=== PATIENT | female | born 1945 | race African-American/Black ===

== ENCOUNTER 2021-02-11 14:22 | Emergency (ER) | payer OTHER ==
[~2021-02-11] VITALS: Ht 167.6 cm; Wt 61.2 kg
[2021-02-11] MEDS ORDERED: JANUVIA50 MG PO (14:48)
[2021-02-11] MEDS ORDERED: METFORMIN HCL500 M3 PO (14:48)
[2021-02-11] MEDS ORDERED: NORVASC10 MG PO (14:49)
[2021-02-11 16:02] LABS: ABSOLUTE NEUTROPHILS 5.6 thou/uL (1.4-8.2); BASOPHILS 0.6 % (0.0-2.0); EOSINOPHILS 1.6 % (0.0-3.0); HEMATOCRIT 39.6 % (37.0-47.0); HEMOGLOBIN 13.3 gm/dL (12.0-15.0); LYMPHOCYTES 22.9 % (24.0-44.0); MCH 29.6 pg (26.0-34.0); MCHC 33.6 g/dL (28.0-37.0); MCV 88.2 fL (80.0-100.0); MONOCYTES 9.4 % (1.0-8.0); POLYS 65.5 % (36.0-66.0); WBC 8.6 thou/uL (4.0-11.0)
[2021-02-11 16:14] LABS: CALCIUM 11.6 mg/dL (8.5-10.1); CREATININE 1.9 mg/dL (0.6-1.0); POTASSIUM 4.3 mmol/L (3.5-5.1)
[2021-02-11 16:20] LABS: ALBUMIN 3.5 g/dL (3.4-5.0); TOTAL BILIRUBIN 0.3 mg/dL (0.2-1.0); TOTAL PROTEIN 8.1 g/dL (6.4-8.2)
--- NOTE | 2021-02-11 16:25 | EKG ---
[place] [address] [employer] [facility] [address] ELECTROCARDIOGRAM REPORT Name: RENETTA SEQUEIRA [id number] Admission: 02/11/21 Attend Phys: Discharge: Date of : 41 Report #: [id number] [facility] ED Test Date: 2021-02-11 Test Time: 16:01:56 Pat Name: RENETTA SEQUEIRA Department: Room: Gender: F Garage Worker: NIKKIE : 1945 Requested By: Ramo Guillen Order Number: [id number] MD: Arturo Cartwright Measurements Intervals Delta Rate: 97 P: 59 [place]: 158 QRS: -50 QRSD: 160 T: 72 QT: 416 QTc: 529 Interpretive Statements Sinus rhythm Paired ventricular premature complexes Probable left atrial enlargement Left bundle branch block No previous ECG available for comparison Electronically Signed On 02-11-2021 16:25:05 CDT by Arturo Cartwright [email or web address] <ELECTRONICALLY SIGNED> By: Arturo Cartwright MD, [facility] 02/11/21 1625 1601 1601 Arturo Cartwright MD, FACC /EPI
[2021-02-11 16:37] LABS: LARGE PLATELETS RARE; PLATELET COUNT 85 thou/uL (150-400)
[2021-02-11 17:03] LABS: URINE BILIRUBIN NEGATIVE (Negative); URINE BLOOD NEGATIVE (Negative); URINE COLOR YELLOW; URINE GLUCOSE-RANDOM* NEGATIVE (Negative); URINE KETONES NEGATIVE (Negative); URINE PROTEIN (DIPSTICK) 1+ (Negative); URINE SPECIFIC GRAVITY 1.015 (1.005-1.035)
[2021-02-11 17:07] LABS: URINE CLARITY HAZY; URINE LEUKOCYTES-REFLEX 2+ (Negative); URINE NITRITE-REFLEX POSITIVE (Negative)
[2021-02-11 17:11] LABS: BACTERIA-REFLEX >30 Many /HPF (None Seen); SQUAMOUS 4-10 Moderate /LPF (0-3); URINE RBC None Seen /HPF (NONE SEEN)
[2021-02-11 17:12] LABS: CASTS None Seen /LPF (None Seen); CRYSTALS None Seen /LPF (None Seen)
[2021-02-11] MEDS ORDERED: CEPHALEXIN500 MG PO (17:26)
[2021-02-11 18:10] VITALS: BP 151/82
== END 2021-02-11 18:10 | disposition home or self-care (01) ==
LOC: ER 14:22
PROVIDERS: Emergency Medicine
DX: N39.0 Urinary tract infection, site not specified (principal)